=== PATIENT | male | born 1990 | race Caucasian/White ===

== ENCOUNTER 2021-02-03 06:03 | Emergency (ER) | payer OTHER ==
--- NOTE | 2021-02-03 06:48 | ERPHSYRPT ---
- History of Present Illness Source: patient Exam Limitations: no limitations Timing/Duration: week(s) (1), constant, gradual onset, worse Severity: moderate, severe Modifying Factors: Worsens With: movement Associated Symptoms: malaise, rash, weakness, No nausea, No vomiting, No abdominal pain, No shortness of breath, No diaphoresis, No cough, No chills, No chest pain, No loss of appetite, No syncope, No seizure <STANLEY SOLORZANO - Last Filed: 02/03/21 06:42> <MURIEL DUNCAN - Last Filed: 02/03/21 09:37> - History of Present Illness Time Seen by Provider: 02/03/21 06:40 Physician History: 30 years old healthy male presented in the ER with chief complaint of bilateral lower extremity soreness/pain for almost 1 week gradual onset progressively worsening more in the right than the left without any known history of fall trauma. Also noticed mild swelling of right foot and ankle but no calf swelling. Reports pain gets worse with activity and this morning he was not able to get out of bed without help. Patient also noticed 3 tick bites on the right anterior thigh, abdominal wall and right back 3 weeks ago without any feve r or chills but has body aches. Has mild low back pain which is not any worse than his usual back pain which he has. (STANLEY SOLORZANO) Allergies/Adverse Reactions: No Known Drug Allergies Allergy (Unverified 02/03/21 06:11) Home Medications: Levothyroxine Sodium [Euthyrox] 50 mcg PO DAILY 02/03/21 [History] - Review of Systems Constitutional: Malaise, Weakness Eyes: No Symptoms Ears, Nose, & Throat: No Symptoms Respiratory: No Symptoms Cardiac: No Symptoms Abdominal/Gastrointestinal: No Symptoms Genitourinary Symptoms: No Symptoms Musculoskeletal: Arthralgias, Joint Pain, Myalgias Skin: Skin Lesions Neurological: No Symptoms Psychological: No Symptoms Endocrine: No Symptoms Hematologic/Lymphatic: No Symptoms Immunological/Allergic: No Symptoms All Other Systems: Reviewed and Negative <STANLEY SOLORZANO - Last Filed: 02/03/21 06:42> - Past Medical History Pertinent Past Medical History: Yes Neurological History: No Pertinent History ENT History: No Pertinent History Cardiac History: No Pertinent History Respiratory History: No Pertinent History Endocrine Medical History: Hypothyroidism Musculoskeletal History: No Pertinent History GI Medical History: No Pertinent History History: No Pertinent History Psycho-Social History: No Pertinent History Male Reproductive Disorders: No Pertinent History - Past Surgical History Past Surgical History: No Neuro Surgical History: No Pertinent History Cardiac: No Pertinent History Respiratory: No Pertinent History Gastrointestinal: No Pertinent History Genitourinary: No Pertinent History Musculoskeletal: No Pertinent History Male Surgical History: No Pertinent History - Social History Drug Use: none <STANLEY SOLORZANO - Last Filed: 02/03/21 06:42> - Physical Exam General Appearance: no apparent distress Eye Exam: PERRL/EOMI, eyes nml inspection Ears, Nose, Throat Exam: normal ENT inspection, TMs normal, pharynx normal Neck Exam: normal inspection, non-tender, supple, full range of motion Respiratory Exam: normal breath sounds, lungs clear Cardiovascular Exam: regular rate/rhythm, normal heart sounds Gastrointestinal/Abdomen Exam: soft, normal bowel sounds, No tenderness Back Exam: normal inspection, normal range of motion, No CVA tenderness Extremity Exam: normal range of motion, joint swelling, pedal edema, swelling (Right ankle), tenderness, No calf tenderness Neurologic Exam: alert, oriented x 3, cooperative, hand cultivator II-XII nml as tested, normal mood/affect, nml cerebellar function, sensation nml, No nml station & ga it, No motor deficits Skin Exam: normal color, other (3 distinct area of tick bite the right anterior thigh, below umbilicus and right back with erythema around. Minimal tend erness.) SpO2 Interpretation: normal SpO2: 98 O2 Delivery: Room Air <STANLEY SOLORZANO - Last Filed: 02/03/21 06:42> - Nursing Vital Signs Nursing Vital Signs: Initial Vital Signs Temperature 99.1 F 02/03/21 06:14 Pulse Rate 72 02/03/21 06:14 Respiratory Rate 20 02/03/21 06:14 Blood Pressure 130/87 02/03/21 06:14 O2 Sat by Pulse Oximetry 98 02/03/21 06:14 Pain Scale Pain Intensity [Left Lower Hip 8 ] Pain Intensity 7 - Course Nursing assessment & vital signs reviewed: Yes - CT Exams Lumbar Spine CT Interpretation: Tele-radiologist Report (No Significant CT abnormality detected.) <MURIEL DUNCAN - Last Filed: 02/03/21 09:37> Ordered Tests: Active Orders 24 hr Category Date Time Status IV Insertion STAT Care 02/03/21 06:41 Active LUMBAR SPINE W/O [CT] Stat Exams 02/03/21 08:23 Completed BLOOD CULTURE Stat Lab 02/03/21 07:21 Received CBC W DIFF Stat Lab 02/03/21 06:25 Completed CK-Creatinine Phosphokinase Stat Lab 02/03/21 06:25 Completed CMP Stat Lab 02/03/21 06:25 Completed Erythrocyte Sedimentation Rate Stat Lab 02/03/21 06:25 Completed Lactic Acid Stat Lab 02/03/21 07:25 Completed PROTIME WITH INR Stat Lab 02/03/21 06:25 Received UA W/RFX UR CULTURE Stat Lab 02/03/21 07:27 Completed Uric Acid Stat Lab 02/03/21 06:25 Completed Medication Summary Discontinued Medications Generic Name Dose Route Start Last Admin Trade Name Freq PRN Reason Stop Dose Admin Doxycycline Hyclate 100 mg 02/03/21 09:28 02/03/21 09:33 Vibramycin 100 Mg PO 02/03/21 09:29 100 mg ONCE STA Administration Doxycycline Hyclate Confirm 02/03/21 09:29 Vibramycin 100 Mg Administered 02/03/21 09:30 Dose 100 mg .ROUTE .STK-MED ONE Sodium Chloride 1,000 mls @ 999 mls/hr 02/03/21 06:41 02/03/21 08:34 Sodium Chloride 0.9% 1000 Ml IV 02/03/21 07:41 Infused .Q1H1M STA Infusion Sodium Chloride Confirm 02/03/21 06:53 Sodium Chloride 0.9% 1000 Ml Administered 02/03/21 06:54 Dose 1,000 mls @ ud .ROUTE .STK-MED ONE Morphine Sulfate 4 mg 02/03/21 06:41 02/03/21 06:58 Morphine Sulfate 4 Mg Inj IV 02/03/21 06:42 4 mg STAT ONE Administration Morphine Sulfate Confirm 02/03/21 06:53 Morphine Sulfate 4 Mg Inj Administered 02/03/21 06:54 Dose 4 mg .ROUTE .STK-MED ONE Morphine Sulfate 4 mg 02/03/21 08:46 02/03/21 09:04 Morphine Sulfate 4 Mg Inj IV 02/03/21 08:47 4 mg STAT ONE Administration Morphine Sulfate Confirm 02/03/21 09:02 Morphine Sulfate 4 Mg Inj Administered 02/03/21 09:03 Dose 4 mg .ROUTE .STK-MED ONE Ondansetron HCl 4 mg 02/03/21 06:41 02/03/21 06:59 Zofran 4 Mg/2 Ml Vial IV 02/03/21 06:42 4 mg STAT ONE Administration Ondansetron HCl Confirm 02/03/21 06:53 Zofran 4 Mg/2 Ml Vial Administered 02/03/21 06:54 Dose 4 mg .ROUTE .STK-MED ONE Lab/Rad Data: Laboratory Result Diagrams 02/03/21 06:25 02/03/21 06:25 Laboratory Results 02/03/21 02/03/21 02/03/21 Range/Units 07:27 07:25 06:25 WBC (4.0-10.5) K/mm3 RBC (4.1-5.6) M/mm3 Hgb (12.5-18.0) gm/dl Hct (42-50) % MCV (78-100) fl MCH (26-32) pg MCHC (32-36) g/dl RDW (11.5-14.0) % Plt Count (150-450) K/mm3 MPV (7.5-11.0) fl Gran % (36.0-66.0) % Eos # (Auto) (0-0.5) Absolute Lymphs (auto) (1.0-4.6) Absolute Monos (auto) (0.0-1.3) Lymphocytes % (24.0-44.0) % Monocytes % (0.0-12.0) % Eosinophils % (0.00-5.0) % Basophils % (0.0-0.4) % Absolute Granulocytes (1.4-6.9) Basophils # (0-0.4) ESR (0-15) mm/hr Sodium 136 L (137-145) mmol/L Potassium 3.8 (3.5-5.1) mmol/L Chloride 101 (98-107) mmol/L Carbon Dioxide 26 (22-30) mmol/L Anion Gap 12.0 (5-15) MEQ/L BUN 12 (9-20) mg/dL Creatinine 0.98 (0.66-1.25) mg/dL Estimated GFR > 60.0 ML/MIN Glucose 96 (74-106) mg/dL Lactic Acid 0.7 (0.4-2.0) Uric Acid 3.6 (3.5-7.2) mg/dL Calcium 9.6 (8.4-10.2) mg/dL Total Bilirubin 0.60 (0.2-1.3) mg/dL AST 39 (17-59) U/L ALT 26 (0-50) U/L Alkaline Phosphatase 67 (38-126) U/L Creatine Kinase 207 H (55-170) U/L Serum Total Protein 8.1 (6.3-8.2) g/dL Albumin 4.5 (3.5-5.0) g/dL Urine Color STRAW (YELLOW) Urine Appearance CLEAR (CLEAR) Urine pH 6.0 (5-6) Ur Specific [place] 1.006 (1.005-1.025) Urine Protein NEGATIVE (Negative) Urine Ketones NEGATIVE (NEGATIVE) Urine Blood NEGATIVE (0-5) Garrett/ul Urine Nitrite NEGATIVE (NEGATIVE) Urine Bilirubin NEGATIVE (NEGATIVE) Urine Urobilinogen NEGATIVE (0-1) mg/dL Ur Leukocyte Esterase NEGATIVE (NEGATIVE) Urine WBC (Auto) NONE (0-5) /HPF Urine RBC (Auto) NONE (0-2) /HPF U Epithel Cells (Auto) NONE (FEW) /HPF Urine Bacteria (Auto) NONE (NEGATIVE) /HPF Urine Culture Reflexed NO (NO) Urine Glucose NEGATIVE (NEGATIVE) mg/dL 02/03/21 Range/Units 06:25 WBC 7.4 (4.0-10.5) K/mm3 RBC 4.85 (4.1-5.6) M/mm3 Hgb 15.2 (12.5-18.0) gm/dl Hct 44.9 (42-50) % MCV 92.6 (78-100) fl MCH 31.3 (26-32) pg MCHC 33.9 (32-36) g/dl RDW 13.6 (11.5-14.0) % Plt Count 216 (150-450) K/mm3 MPV 11.4 H (7.5-11.0) fl Gran % 63.5 (36.0-66.0) % Eos # (Auto) 0.37 (0-0.5) Absolute Lymphs (auto) 1.26 (1.0-4.6) Absolute Monos (auto) 1.04 (0.0-1.3) Lymphocytes % 17.0 L (24.0-44.0) % Monocytes % 14.0 H (0.0-12.0) % Eosinophils % 5.0 (0.00-5.0) % Basophils % 0.5 (0.0-0.4) % Absolute Granulocytes 4.72 (1.4-6.9) Basophils # 0.04 (0-0.4) ESR 22 H (0-15) mm/hr Sodium (137-145) mmol/L Potassium (3.5-5.1) mmol/L Chloride (98-107) mmol/L Carbon Dioxide (22-30) mmol/L Anion Gap (5-15) MEQ/L BUN (9-20) mg/dL Creatinine (0.66-1.25) mg/dL Estimated GFR ML/MIN Glucose (74-106) mg/dL Lactic Acid (0.4-2.0) Uric Acid (3.5-7.2) mg/dL Calcium (8.4-10.2) mg/dL Total Bilirubin (0.2-1.3) mg/dL AST (17-59) U/L ALT (0-50) U/L Alkaline Phosphatase (38-126) U/L Creatine Kinase (55-170) U/L Serum Total Protein (6.3-8.2) g/dL Albumin (3.5-5.0) g/dL Urine Color (YELLOW) Urine Appearance (CLEAR) Urine pH (5-6) Ur Specific [place] (1.005-1.025) Urine Protein (Negative) Urine Ketones (NEGATIVE) Urine Blood (0-5) Garrett/ul Urine Nitrite (NEGATIVE) Urine Bilirubin (NEGATIVE) Urine Urobilinogen (0-1) mg/dL Ur Leukocyte Esterase (NEGATIVE) Urine WBC (Auto) (0-5) /HPF Urine RBC (Auto) (0-2) /HPF U Epithel Cells (Auto) (FEW) /HPF Urine Bacteria (Auto) (NEGATIVE) /HPF Urine Culture Reflexed (NO) Urine Glucose (NEGATIVE) mg/dL <STANLEY SOLORZANO - Last Filed: 02/03/21 06:42> - Progress Progress: improved Counseled pt/family regarding: lab results, diagnosis, rad results <MURIEL DUNCAN - Last Filed: 02/03/21 09:37> - Progress Progress Note: 02/03/21 06:47 Work-up is pending, care is transferred to Dr. Duncan at shift change for reevaluation and final disposition (STANLEY SOLORZANO) Patient endorsed to Dr. Duncan at approximately 7 AM. Laboratory work-up pending. Patient reassessed. Agree with Dr. Solorzano assessment. Patient received 4 mg of morphine IV for pain control. Extremities are neurovascular intact distally. Patient does have pain to bilateral lower extremities. Chronic back pain unchanged in character and intensity. No change in bowel bladder function. No saddle anesthesia. CBC within normal limits. Chemistry essentially within normal limits. CK mildly elevated. Case discussed with Dr. Shane. We will transfer patient to [facility] for rheumatology/infectious disease con sultation evaluation. Plan of care discussed with patient. He agrees to transfer to [facility] for further evaluation and treatment. 02/03/21 08:48 02/03/21 09:[address] Levine ED physician at [facility] who accepts transfer at 8:35am. CT scan shows no significant CT abnormality detected. 02/03/21 09:35 02/03/21 09:35 Patient transferred to [facility] via ALS ambulance in stable condition. Patient received a dose of doxycycline 100 mg p.o. x1 prior to transfer. 02/03/21 09:36 (MURIEL DUNCAN) <STANLEY SOLORZANO - Last Filed: 02/03/21 06:42> - Departure Departure Disposition: Home Critical Care Time: No <MURIEL DUNCAN - Last Filed: 02/03/21 09:37> - Departure Clinical Impression: Elevated CK, Leg pain, bilateral, Elevated sed rate, Tick bite Condition: Stable Referrals: ALBERTO VELÁZQUEZ [Primary Care Provider] -
[2021-02-03] MEDS ORDERED: Sodium Chloride 0.9% 1000 ML 1,000 ML ONE (06:53)
[2021-02-03] MEDS ORDERED: Zofran 4 MG/2 ML VIAL ONE (06:53)
[2021-02-03] MEDS ORDERED: MORPHINE SULFATE 4 MG INJ ONE ×2 (06:53→09:02)
[2021-02-03] MEDS: Sodium Chloride 0.9% 1000 ML 1,000 ML IV STA (06:57)
[2021-02-03] MEDS: MORPHINE SULFATE 4 MG INJ IV ONE ×2 (06:58→09:04)
[2021-02-03] MEDS: Zofran 4 MG/2 ML VIAL IV ONE (06:59)
[2021-02-03 07:28] LABS: Absolute Neutrophil Ct (ANC) 4.72 (1.4-6.9); BASOPHIL % 0.5 % (0.0-0.4); Basophil (Absolute #) 0.04 (0-0.4); Eosinophil (Absolute #) 0.37 (0-0.5); Hematocrit 44.9 % (42-50); Hemoglobin 15.2 gm/dl (12.5-18.0); Lymphocyte (Absolute #) 1.26 (1.0-4.6); Mean Cell Volume 92.6 fl (78-100); Mean Corpuscular Hemoglobin 31.3 pg (26-32); Mean Corpuscular Hgb Concent. 33.9 g/dl (32-36); Mean Platelet Volume 11.4 fl (7.5-11.0); Monocyte (Absolute #) 1.04 (0.0-1.3); Neutrophil % 63.5 % (36.0-66.0); Platelet Count 216 K/mm3 (150-450); Red Blood Count 4.85 M/mm3 (4.1-5.6); Red Cell Distribution Width 13.6 % (11.5-14.0); White Blood Count 7.4 K/mm3 (4.0-10.5)
[2021-02-03 07:36] LABS: Appearance CLEAR (CLEAR); Bilirubin NEGATIVE (NEGATIVE); Blood NEGATIVE Ery/ul (0-5); Glucose NEGATIVE (NEGATIVE); Ketones NEGATIVE (NEGATIVE); Leukocyte Esterase NEGATIVE (NEGATIVE); Nitrite NEGATIVE (NEGATIVE); Protein,Urine Dip NEGATIVE (Negative); Specific Gravity 1.006 (1.005-1.025); Urobilinogen NEGATIVE mg/dL (0-1)
[2021-02-03 07:39] LABS: ALBUMIN 4.5 g/dL (3.5-5.0); ALKALINE PHOSPHATASE 67 U/L (38-126); BLOOD UREA NITROGEN 12 mg/dL (9-20); CHLORIDE 101 mmol/L (98-107); CK-Creatinine Phosphokinase 207 U/L (55-170); Calcium 9.6 mg/dL (8.4-10.2); Carbon Dioxide 26 mmol/L (22-30); Creatinine 1 0.98 mg/dL (0.66-1.25); EST GLOMERULAR FILTRATION RATE > 60.0 ML/MIN; Glucose 96 mg/dL (74-106); Potassium 3.8 mmol/L (3.5-5.1); SGOT/AST 39 U/L (17-59); SGPT/ALT 26 U/L (0-50); SODIUM 136 mmol/L (137-145); Total Protein 8.1 g/dL (6.3-8.2); Uric Acid 3.6 mg/dL (3.5-7.2)
[2021-02-03 08:45] LABS: Erythrocyte Sedimentation Rate 22 mm/hr (0-15)
[2021-02-03] MEDS ORDERED: Vibramycin 100 MG ONE (09:29)
--- NOTE | 2021-02-03 09:32 | XRAY ---
Exam: CT of the lumbar spine without IV contrast from 02/03/2021. CTDI: 10.87 mGy Comparison: MRI of the lumbar spine from 07/05/2017 (reported as negative for disc herniation or spinal stenosis). Indication: 30-year-old male woke up this morning with bilateral hip pain (right greater than left), and bilateral lower extremity pain with left foot swelling; no known injury; difficulty with ambulation; clinical concern for cauda equina syndrome. Technique: Axial images were obtained through the entire lumbar spine from mid T12 down to the mid aspect of the sacrum using bone window technique. In addition, reconstructed coronal and sagittal images were created and reviewed. Lastly, angled axial images were obtained parallel to each of the 5 lumbar interspaces. Findings: There are 5 [id number] lumbar-type vertebra. The sacroiliac joints appear unremarkable. I see no acute lumbar spine fracture, spondylolisthesis, or spondylolysis. Both the vertebral body heights and interspace heights are well-maintained on the sagittal images. I see no bone destruction. I see no evidence of central canal spinal stenosis or significant foraminal stenosis. No significant focal disc protrusion or definite intraspinal mass is seen. Impression: 1. No significant CT abnormality detected.
[2021-02-03] MEDS: Vibramycin 100 MG PO STA (09:33)
[2021-02-03 09:35] LABS: INR 1.11 (0.8-3.0); PROTIME 12.5 SECONDS (8.83-12.87)
[2021-02-03 09:41] VITALS: BP 136/69; PULSE 69; O2SAT 98
== END 2021-02-03 09:40 | disposition short-term general hospital (02) ==
LOC: ED 06:03
DX: R74.8 Abnormal levels of other serum enzymes (principal); R70.0 Elevated erythrocyte sedimentation rate; S70.361A Insect bite (nonvenomous), right thigh, initial encounter; M79.89 Other specified soft tissue disorders; M54.5 Low back pain
CPT/HCPCS: 36000; 36415; 72131; 80053; 81001; 82550; 83605; 84550; 85025; 85610; 85652; 86617; 86618; 86757; 87040; 96360; 96374; 96375; 96376; 99285; J2270; J2405; A9270-GY